=== PATIENT | male | born 1955 | race Caucasian/White ===

== ENCOUNTER 2023-01-14 14:23 | Emergency (ER) | payer MEDICARE, OTHER ==
[2023-01-14] MEDS ORDERED: Lidocaine 1% 5 ML VIAL INJECT STA (16:31)
== END 2023-01-14 17:30 | disposition home or self-care (01) ==
LOC: MW.ED 14:23
DX: S61.012A Laceration without foreign body of left thumb without damage to nail, initial encounter (principal); E78.00 Pure hypercholesterolemia, unspecified; I10 Essential (primary) hypertension; Z79.899 Other long term (current) drug therapy; W22.8XXA Striking against or struck by other objects, initial encounter
CPT/HCPCS: 12002; 99282; 99283; J3490

== ENCOUNTER 2025-05-12 15:58 | Emergency (ER) | payer MEDICARE, OTHER ==
[2025-05-12] MEDS: Lidocaine 1% 10 ML MDV INJECT ONE (19:57)
[2025-05-12] MEDS: Bacitracin Oint 1 GM U/D Packet TOP ONE (21:30)
[2025-05-12] MEDS: Cephalexin 500 MG Cap PO ONE (21:30)
== END 2025-05-12 21:37 | disposition home or self-care (01) ==
LOC: MW.ED 15:58
DX: S61.012A Laceration without foreign body of left thumb without damage to nail, initial encounter (principal); I10 Essential (primary) hypertension; E78.00 Pure hypercholesterolemia, unspecified; Z79.899 Other long term (current) drug therapy; W26.8XXA Contact with other sharp object(s), not elsewhere classified, initial encounter; Y93.89 Activity, other specified
CPT/HCPCS: 73140; 99283; A9270; J2003